=== PATIENT | male | born 1995 | race Caucasian/White ===

== ENCOUNTER 2017-05-26 15:34 | Emergency (ER) | payer OTHER ==
[2017-05-26 17:02] VITALS: BP 132/90
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
== END 2017-05-26 17:03 | disposition home or self-care (01) ==
LOC: ED 15:34
DX: S41.151A Open bite of right upper arm, initial encounter (principal); Y04.1XXA Assault by human bite, initial encounter; Y93.89 Activity, other specified; Y92.199 Unspecified place in other specified residential institution as the place of occurrence of the external cause
CPT/HCPCS: 36415; 86703; 86706; 86803; 87340; 99281